=== PATIENT | female | born 1995 | race Hispanic/Latino ===

== ENCOUNTER 2023-09-05 17:44 | Observation (INO) | payer OTHER ==
[~2023-09-05] VITALS: Ht 162.6 cm; Wt 97.5 kg
[2023-09-05 18:27] LABS: BASOPHILS % 0.1 % (0.0-1.0); EOSINOPHILS # (AUTO) 0.1 (0.0-0.4); EOSINOPHILS % 0.6 % (0.0-6.0); LYMPHOCYTES % 25.3 % (18.0-39.1); MEAN CORPUSCULAR HEMOGLOBIN 26.6 pg (28-32); MEAN CORPUSCULAR HGB CONC 30.6 g/dL (31-35); MEAN CORPUSCULAR VOLUME 86.9 fL (81-99); MONOCYTES # (AUTO) 0.4 (0.2-0.8); MONOCYTES % 5.4 % (4.4-11.3); NEUTROPHILS # (AUTO) 5.3 (2.1-6.9); NEUTROPHILS % 67.7 % (38.7-80.0); PLATELET COUNT 337 x10e3/uL (140-360); RED BLOOD COUNT 2.14 x10e6/uL (3.6-5.1); RED CELL DISTRIBUTION WIDTH 15.3 % (11.7-14.4); WHITE BLOOD COUNT 7.84 x10e3/uL (4.8-10.8)
[2023-09-05 18:33] LABS: HEMOGLOBIN 5.7 g/dL (12.0-16.0)
[2023-09-05 18:34] LABS: HEMATOCRIT 18.6 % (34.2-44.1)
[2023-09-05 18:36] LABS: INR 0.96; PROTHROMBIN TIME 13.5 seconds (11.9-14.5)
[2023-09-05 18:37] LABS: PARTIAL THROMBOPLASTIN TIME 24.1 seconds (23.8-35.5)
[2023-09-05] MEDS ORDERED: SODIUM CHLORIDE FLUSH 10 ML SYR INJ PRN (18:45)
[2023-09-05] MEDS ORDERED: ONDANSETRON HCL INJ 2MG/ML 2ML 2 MG/ML VIAL IV PRN (18:45)
[2023-09-05 18:46] LABS: ALBUMIN 3.9 g/dL (3.5-5.0); ALBUMIN/GLOBULIN RATIO 1.2 (0.8-2.0); ANION GAP 15.6 mmol/L (8-16); BILIRUBIN,TOTAL 0.4 mg/dL (0.2-1.2); CALCIUM 9.2 mg/dL (8.4-10.2); CREATININE, SERUM 0.84 mg/dL (0.57-1.11); POTASSIUM 3.6 mmol/L (3.5-5.1); TOTAL PROTEIN 7.2 g/dL (6.5-8.1)
[2023-09-05] MEDS: ACETAMINOPHEN 325 MG TAB PO STA (19:26)
[2023-09-05] MEDS: SODIUM CHLORIDE 0.9% 250ML 250 ML IV ONE (19:27)
[2023-09-05 20:30] VITALS: PULSE 106; RESP 16; O2SAT 100
[2023-09-05 21:00] VITALS: BP 113/66; PULSE 105; RESP 20; TEMP 98.6; O2SAT 100
[2023-09-05 21:25] VITALS: BP 113/60; PULSE 111; RESP 18; TEMP 98.6; O2SAT 100
[2023-09-06] VITALS: BP 105/62; PULSE 98; RESP 18; TEMP 98.2; O2SAT 100
[2023-09-06] MEDS ORDERED: MEDROXYPROGESTE10 MG PO (02:02)
[2023-09-06] MEDS ORDERED: FEROSUL325 MG PO (02:02)
[2023-09-06 04:00] VITALS: BP 98/67; PULSE 86; RESP 18; TEMP 98; O2SAT 100
[2023-09-06 06:43] VITALS: PULSE 98; RESP 20; O2SAT 100
[2023-09-06] MEDS ORDERED: ACETAMINOPHEN 325 MG TAB PO PRN (08:00)
[2023-09-06 08:22] VITALS: BP 106/64; PULSE 84; RESP 18; TEMP 98.6; O2SAT 100
[2023-09-06 09:00] VITALS: BP 106/64; PULSE 84; RESP 18; TEMP 98.6; O2SAT 100
[2023-09-06] MEDS: FERROUS SULFATE 325 MG TAB PO SCH (09:19)
[2023-09-06] MEDS: MEDROXYPROGESTERONE ACETATE 2.5 MG TAB PO SCH (09:23)
[2023-09-06 10:46] LABS: BASOPHILS % 0.3 % (0.0-1.0); EOSINOPHILS # (AUTO) 0.1 (0.0-0.4); EOSINOPHILS % 0.7 % (0.0-6.0); HEMATOCRIT 27.5 % (34.2-44.1); HEMOGLOBIN 9.2 g/dL (12.0-16.0); LYMPHOCYTES # (AUTO) 2.1 (1.0-3.2); LYMPHOCYTES % 30.6 % (18.0-39.1); MEAN CORPUSCULAR HEMOGLOBIN 28.8 pg (28-32); MEAN CORPUSCULAR HGB CONC 33.5 g/dL (31-35); MEAN CORPUSCULAR VOLUME 85.9 fL (81-99); MONOCYTES # (AUTO) 0.5 (0.2-0.8); MONOCYTES % 7.7 % (4.4-11.3); NEUTROPHILS # (AUTO) 4.1 (2.1-6.9); NEUTROPHILS % 60.1 % (38.7-80.0); PLATELET COUNT 260 x10e3/uL (140-360); RED CELL DISTRIBUTION WIDTH 14.6 % (11.7-14.4); WHITE BLOOD COUNT 6.87 x10e3/uL (4.8-10.8)
[2023-09-06 11:03] LABS: ANION GAP 12.4 mmol/L (8-16); CALCIUM 9.1 mg/dL (8.4-10.2); CREATININE, SERUM 0.77 mg/dL (0.57-1.11)
[2023-09-06 11:12] LABS: POTASSIUM 4.4 mmol/L (3.5-5.1)
[2023-09-06 12:41] VITALS: BP 118/75; PULSE 92; RESP 19; TEMP 98.6; O2SAT 100
== END 2023-09-06 15:28 | disposition home or self-care (01) ==
LOC: ER 18:26 → ERHOLD 18:47 → MED/SURG3 20:42
PROVIDERS: ADMIT Internal Medicine; ATTEND Internal Medicine
DX: D50.9 Iron deficiency anemia, unspecified (principal); N92.1 Excessive and frequent menstruation with irregular cycle; D25.9 Leiomyoma of uterus, unspecified; Z11.52 Encounter for screening for COVID-19; Z79.899 Other long term (current) drug therapy
CPT/HCPCS: 36415 ×2; 36430 ×2; 80048; 80053; 84702; 85025 ×2; 85610; 85730; 86850; 86900; 86920; 93005; 94799 ×2; 99284; G0378 ×2; P9016 ×2; U0002

== ENCOUNTER 2024-09-14 14:57 | Emergency (ER) | payer OTHER ==
[~2024-09-14] VITALS: Ht 162.6 cm; Wt 97.5 kg
[~2024-09-14 14:57] MED LIST: FEROSUL325 MG PO; FIORICET 50-301 EACH PO; MEDROXYPROGESTE10 MG PO
[2024-09-14 15:08] VITALS: PULSE 95; RESP 18; TEMP 98.7; O2SAT 100
[2024-09-14] MEDS: KETOROLAC TROMETHAMINE 30 MG/ML VIAL IV STA (16:12)
[2024-09-14] MEDS: ONDANSETRON HCL INJ 2MG/ML 2ML 2 MG/ML VIAL IV STA (16:12)
[2024-09-14] MEDS: SODIUM CHLORIDE 0.9% 1000ML 1,000 ML IV ONE (16:12)
[2024-09-14 16:13] LABS: BASOPHILS % 0.4 % (0.0-1.0); EOSINOPHILS # (AUTO) 0.1 (0.0-0.4); EOSINOPHILS % 0.9 % (0.0-6.0); HEMATOCRIT 33.3 % (34.2-44.1); HEMOGLOBIN 10.2 g/dL (12.0-16.0); LYMPHOCYTES # (AUTO) 2.5 (1.0-3.2); LYMPHOCYTES % 30.6 % (18.0-39.1); MEAN CORPUSCULAR HEMOGLOBIN 23.2 pg (28-32); MEAN CORPUSCULAR HGB CONC 30.6 g/dL (31-35); MEAN CORPUSCULAR VOLUME 75.9 fL (81-99); MONOCYTES # (AUTO) 0.6 (0.2-0.8); MONOCYTES % 6.7 % (4.4-11.3); PLATELET COUNT 307 x10e3/uL (140-360); RED BLOOD COUNT 4.39 x10e6/uL (3.6-5.1); RED CELL DISTRIBUTION WIDTH 16.2 % (11.7-14.4); WHITE BLOOD COUNT 8.16 x10e3/uL (4.8-10.8)
[2024-09-14 16:30] LABS: ALANINE AMINOTRANSFERASE 53 IU/L (0-55); ALBUMIN 3.9 g/dL (3.5-5.0); ALBUMIN/GLOBULIN RATIO 1.1 (0.8-2.0); ALKALINE PHOSPHATASE 57 IU/L (40-150); ANION GAP 12.8 mmol/L (8-16); BILIRUBIN,TOTAL 0.3 mg/dL (0.2-1.2); BLOOD UREA NITROGEN 11 mg/dL (7-26); BUN/CREATININE RATIO 14 (6-25); CALCIUM 9.1 mg/dL (8.4-10.2); CARBON DIOXIDE 24 mmol/L (22-29); CHLORIDE 107 mmol/L (98-107); CREATININE, SERUM 0.76 mg/dL (0.57-1.11); EST GLOMERULAR FILTRATION RATE 109 ML/MIN (>=60); GLUCOSE 115 mg/dL (74-118); LIPASE 28 U/L (8-78); POTASSIUM 3.8 mmol/L (3.5-5.1); SODIUM 140 mmol/L (136-145); TOTAL PROTEIN 7.4 g/dL (6.5-8.1)
[2024-09-14 17:13] LABS: BILIRUBIN,URINE NEGATIVE (NEGATIVE); CLARITY,URINE CLEAR (CLEAR); COLOR,URINE YELLOW (YELLOW); GLUCOSE, URINE NEGATIVE (NEGATIVE); KETONES,URINE NEGATIVE (NEGATIVE); LEUKOCYTE ESTERASE ,URINE NEGATIVE (NEGATIVE); NITRITE,URINE NEGATIVE (NEGATIVE); PH,URINE 6 (5 - 7); PROTEIN,URINE DIPSTICK NEGATIVE (NEGATIVE); URINE UROBILINOGEN 0.2 mg/dL (0.2 - 1)
[2024-09-14 17:23] LABS: WBC,URINE (MAN) 0-5 /HPF (0-5)
[2024-09-14 17:24] LABS: BACTERIA,URINE MODERATE /HPF; EPITHELIAL CELLS,URINE MODERATE /LPF
[2024-09-14] MEDS ORDERED: PEPCID20 MG PO (18:12)
== END 2024-09-14 18:30 | disposition home or self-care (01) ==
LOC: ER 15:01
DX: R10.13 Epigastric pain (principal); K29.70 Gastritis, unspecified, without bleeding; R11.2 Nausea with vomiting, unspecified
CPT/HCPCS: 36415; 76705; 80053; 81001; 83690; 84702; 85025; 93005; 99284; J1885; J2405; J7030

== ENCOUNTER 2025-02-27 18:43 | Observation (INO) | payer OTHER ==
[~2025-02-27] VITALS: Ht 162.6 cm; Wt 100.7 kg
[~2025-02-27 18:43] MED LIST changes: +PEPCID20 MG PO
[2025-02-27 19:20] VITALS: PULSE 105; RESP 19; TEMP 99.3; O2SAT 100
[2025-02-27 20:01] LABS: BASOPHILS % 0.4 % (0.0-1.0); EOSINOPHILS % 0.5 % (0.0-6.0); LYMPHOCYTES % 35.9 % (18.0-39.1); MONOCYTES % 5.9 % (4.4-11.3); NEUTROPHILS % 57.2 % (38.7-80.0); RED CELL DISTRIBUTION WIDTH 19.0 % (11.7-14.4)
[2025-02-27 20:21] LABS: EST GLOMERULAR FILTRATION RATE 102.0 ML/MIN (>=60)
[2025-02-27] MEDS: SODIUM CHLORIDE 0.9% 1000ML 1,000 ML IV ONE (21:46)
[2025-02-27 22:01] LABS: LEUKOCYTE ESTERASE ,URINE NEGATIVE (NEGATIVE); PROTEIN,URINE DIPSTICK TRACE (NEGATIVE)
[2025-02-27 22:02] LABS: URINE UROBILINOGEN 0.2 mg/dL (0.2 - 1)
[2025-02-27 22:10] LABS: EPITHELIAL CELLS,URINE RARE /LPF; WBC,URINE (MAN) 0-5 /HPF (0-5)
[2025-02-27] MEDS: MEDROXYPROGESTERONE ACETATE 2.5 MG TAB PO SCH (23:15)
[2025-02-28] VITALS (7 sets, daily range): BP systolic 104–126; BP diastolic 41–70; PULSE 73–95; RESP 18–20; TEMP 97.7–98.7; O2SAT 96–100
[2025-02-28 08:24] LABS: BASOPHILS % 0.4 % (0.0-1.0); EOSINOPHILS % 2.1 % (0.0-6.0); LYMPHOCYTES % 43.9 % (18.0-39.1); MONOCYTES % 6.2 % (4.4-11.3); NEUTROPHILS % 47.1 % (38.7-80.0); RED CELL DISTRIBUTION WIDTH 19.2 % (11.7-14.4)
[2025-02-28 08:50] LABS: EST GLOMERULAR FILTRATION RATE 120.0 ML/MIN (>=60)
[2025-02-28] MEDS: SODIUM CHLORIDE 0.9% 250ML 250 ML IV ONE (09:54)
[2025-02-28] MEDS: FAMOTIDINE 20 MG TAB PO SCH (16:35)
[2025-02-28] MEDS: SODIUM FERRIC GLUCONATE COMPLX 125 MG in SODIUM CHLORIDE 0.9% 100 ML IV SCH (17:00)
[2025-03-01 04:00] VITALS: BP 99/49; PULSE 85; RESP 18; TEMP 98.2; O2SAT 100
[2025-03-01] MEDS: SODIUM CHLORIDE 0.9% 250ML 250 ML ONE ×2 (07:20)
[2025-03-01 08:41] VITALS: BP 115/60; PULSE 64; RESP 18; TEMP 98.9; O2SAT 100
[2025-03-01 08:48] VITALS: BP 115/60; PULSE 64; RESP 18; TEMP 98.9; O2SAT 100
[2025-03-01] MEDS ORDERED: SODIUM FERRIC GLUCONATE COMPLX 125 MG in SODIUM CHLORIDE 0.9% 100 ML IV SCH (09:00)
[2025-03-01] MEDS ORDERED: VITAMIN C 500500 MG PO (10:44)
[2025-03-01] MEDS ORDERED: MEDROXYPROGEST2.5 MG PO (10:44)
[2025-03-01 13:25] VITALS: BP 103/52; PULSE 67; RESP 18; TEMP 98.4; O2SAT 100
== END 2025-03-01 13:28 | disposition home or self-care (01) ==
LOC: ER 19:47 → ERHOLD 23:11 → MED/SURG 02-28 04:11
PROVIDERS: ADMIT Internal Medicine; ATTEND Internal Medicine
DX: N93.8 Other specified abnormal uterine and vaginal bleeding (principal); D50.0 Iron deficiency anemia secondary to blood loss (chronic); K76.0 Fatty (change of) liver, not elsewhere classified; K21.9 Gastro-esophageal reflux disease without esophagitis; D25.9 Leiomyoma of uterus, unspecified; N83.202 Unspecified ovarian cyst, left side
CPT/HCPCS: 36415 ×3; 36430; 74176; 80053 ×2; 81001; 82948 ×2; 84702; 85014; 85018; 85025 ×2; 86850; 86900; 86920; 94799; 99284; G0378 ×3; J2916 ×2; J7030; J7050 ×3; P9016